=== PATIENT | male | born 1990 | race Caucasian/White ===

== ENCOUNTER 2024-01-29 15:06 | Emergency (ER) | payer MEDICAID, SELFPAY ==
[2024-01-29] VITALS (23 sets, daily range): BP systolic 124–175; BP diastolic 67–102; PULSE 79–124; RESP 26–30; TEMP 36.4–36.7; O2SAT 95–100
[2024-01-29] MEDS: LORazepam 2 MG/ML inj 0.5 MG IVP (15:40)
[2024-01-29 15:50] LABS: HCO3 VBG 20 mmol/L (21-28); PCO2 VBG 26 mmHG (40-50); PO2 VBG 67.2 mmHG (25-47); pH VBG 7.498 (7.32-7.43)
[2024-01-29] MEDS: 0.9 % SODIUM CHLORIDE 1000 ml 1,000 ML IV ×2 (15:55→17:10)
[2024-01-29 15:58] LABS: Basophils Absolute Auto 0.07 K/uL (0.00-0.30); Basophils Percent Auto 0.7 % (0.0-3.0); Eosinophils Absolute Auto 0.04 K/uL (0.00-0.50); Eosinophils Percent Auto 0.4 % (0.0-7.0); Hematocrit 43.8 % (37.0-53.0); Hemoglobin* 14.6 gm/dL (13.5-17.5); Immature Granulocytes Abs Auto 0.07 K/uL (0.00-0.30); Immature Granulocytes Pct Auto 0.7 %; Lymphocytes Percent Auto 10.9 % (20-44); Mean Corpuscular HGB Conc 33 gm/dL (32-36); Mean Corpuscular Hemoglobin 29 pg (26-34); Mean Corpuscular Volume 87 fL (80-100); Monocytes Percent Auto 8.8 % (0.0-11.0); Neutrophils Percent Auto 78.5 % (42.0-72.0); Platelet Count* 278 K/uL (140-440); RDW Coefficient of Variation % 12.9 % (11.5-15.5); Red Blood Count 5.01 m/uL (4.30-5.90); Slide Review Reflex No; White Blood Count* 10.49 K/uL (4.50-11.00)
[2024-01-29 16:08] LABS: Albumin* 5.2 g/dL (3.3-5.0)
[2024-01-29 16:09] LABS: Chloride* 102 mmol/L (96-114); Potassium* 4.1 mmol/L (3.6-5.1); Sodium* 134 mmol/L (135-149)
[2024-01-29 16:11] LABS: Alanine Aminotransferase* 25 U/L (4-50); Alkaline Phosphatase* 90 U/L (40-150); Anion Gap 13 mEq/L (7-15); Aspartate Amino Transferase* 53 U/L (12-35); Bilirubin Direct* 0.4 mg/dL (0.0-0.5); Blood Urea Nitrogen* 24 mg/dL (5-24); Carbon Dioxide* 19 mmol/L (20-32); Creatinine* 1.7 mg/dL (0.5-1.5); Estimated Glomerular Filt Rate 55 ml/min; Glucose* 106 mg/dL (60-115); Total Protein* 8.3 g/dL (6.0-8.3)
[2024-01-29 16:12] LABS: Calcium* 9.6 mg/dL (8.4-10.6); Magnesium* 1.8 mg/dL (1.5-2.6); Salicylate* < 1.0 mg/dL (1.0-10)
[2024-01-29 16:23] LABS: Troponin I* 0.02 ng/mL (0.01-0.04)
[2024-01-29 16:27] LABS: Acetaminophen* < 10.0 ug/mL (10.0-30.0); Ethanol* < 0.01 % (0.01-0.03)
[2024-01-29 18:01] LABS: PCR FLU A Negative PCR FLU A (Negative); PCR FLU B Negative PCR FLU B (Negative); SARS PCR* POSITIVE SARS-CoV-2 (Negative)
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
[2024-01-29 18:23] LABS: HCO3 VBG 23 mmol/L (21-28); PCO2 VBG 43 mmHG (40-50); PO2 VBG 33.5 mmHG (25-47)
[2024-01-29 18:37] LABS: Appearance Urine Clear (Clear); Bilirubin Urine 1+ (Negative); Blood Urine Trace-intact (Negative); Color Urine Dark yellow (Yellow); Glucose Urine Negative (Negative); Ketones Urine 1+ (Negative); Leukocyte Esterase Urine Negative (Negative); Nitrite Urine Negative (Negative); Protein Urine 2+ (Negative); Specific Gravity Urine >= 1.030 (1.000-1.030); Urobilinogen Urine 0.2 (0.2-1.0)
[2024-01-29 18:39] LABS: Chloride* 105 mmol/L (96-114); Potassium* 3.7 mmol/L (3.6-5.1); Sodium* 137 mmol/L (135-149)
[2024-01-29 18:42] LABS: Anion Gap 11 mEq/L (7-15); Blood Urea Nitrogen* 22 mg/dL (5-24); Carbon Dioxide* 21 mmol/L (20-32); Creatinine* 1.3 mg/dL (0.5-1.5); Estimated Glomerular Filt Rate 75 ml/min; Glucose* 97 mg/dL (60-115)
[2024-01-29 18:43] LABS: Calcium* 8.7 mg/dL (8.4-10.6)
--- NOTE | 2024-01-29 18:45 | ED.NURSE ---
Pt is awake in room, is cooperative at this time.
[2024-01-29 18:48] LABS: Lactate* 1.1 mmol/L (0.5-1.9)
[2024-01-29 18:53] LABS: Bacteria Urine Few
[2024-01-29 18:54] LABS: Hyaline Casts Urine Moderate (None-Few)
[2024-01-29 18:59] LABS: Cannabinoid Screen Urine POSITIVE (Negative)
[2024-01-29 19:00] LABS: Amphetamine Screen Urine POSITIVE (Negative); Barbiturate Screen Urine Negative (Negative); Benzodiazepines Screen Urine Negative (Negative); Cocaine Screen Urine Negative (Negative); Opiate Screen Urine Negative (Negative); Oxycodone Screen Urine Negative (Negative); Phencyclidine Screen Urine Negative (Negative); Tricyclic Antidepressant Urine Negative (Negative)
[2024-01-29 19:02] LABS: Methadone Screen Urine Negative (Negative); Methamphetamines Screen Urine POSITIVE (Negative)
--- NOTE | 2024-01-29 19:25 | CRLHL7_ITS ---
For Patients: As a result of the Cures Act, medical imaging exams and procedure reports are released immediately into your electronic medical record. You may view this report before your referring provider. If you have questions, please contact your health care provider. INDICATION: Short of breath, COVID-19. TECHNIQUE: Chest 1 view. COMPARISON: None. FINDINGS: Cardiovascular and mediastinum: Cardiomediastinal silhouette is within normal limits. Lungs and pleural spaces: Lungs are clear. No evidence of pleural effusion. No pneumothorax identified. Bones and soft tissues: Unremarkable. IMPRESSION: No acute cardiopulmonary process identified. No significant interval change. Dictated by Petar Fry MD @ 01/29/2024 8:51:37 PM (Electronically Signed)
== END 2024-01-29 20:34 | disposition home or self-care (01) ==
PROVIDERS: Emergency Provider Family Medicine
DX: U07.1 COVID-19 (principal); E86.0 Dehydration; F15.90 Other stimulant use, unspecified, uncomplicated
CPT/HCPCS: 36415; 71045; 80048; 80076; 80143; 80179; 80306; 81001; 82077; 82803; 83605; 83735; 84443; 84484; 85025; 87086; 87631; 93005; 94761; 96361; 96374; 99284; 99285; J2060; J7030

== ENCOUNTER 2025-01-04 16:30 | Outpatient (CLI) | payer MEDICAID, SELFPAY ==
--- OUTSIDE RECORDS SUMMARY | 2025-01-11 00:20 | XMS_ITS | Clinical Summary ---
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
--- OUTSIDE RECORDS SUMMARY | 2025-01-11 00:20 | XMS_ITS | Encounter Summary ---
Author Organization [facility] Address [address] [place] [address] Care Team Providers Care Sex Worker Or Escort Name Role Phone No Primary/Referring, Phy Primary [...] on filedocumented in this encounter Care Teams Sex Worker Or Escort Relationship Specialty Start Date End Date No Primary/Referring, Phy PCP - General 06/25/18 documented as of this encounter
--- OUTSIDE RECORDS SUMMARY | 2025-01-11 00:20 | XMS_ITS | Clinical Summary ---
Author Organization [facility] Address [address] [place] [address] Care Team Providers Care Molder Bench Name Role Phone Pcp, No Primary Care Provider Unavailabl e None Unavailable Unavailable Allergies Active Allergy Reactions Criticality Noted Date Comments Dronabinol Rash Low 09/17/2017 Mold Extracts Cough 11/20/2012 cough Quetiapine Other - Describe In Comment Field 08/29/2020 Nerve pain Nerve pain Medications diphenhydrAMINE (BENADRYL) 25 mg tabletIndication s:Anxiety Take 2 Tablets (50 mg) by mouth at bedtime. 30 Tablet 06/19/2024 9:15 AM TURNING MACHINE OPERATOR 4 Active haloperidoL (HALDOL) 20 mg tabletIndication s:Psychosis, unspecified psychosis type (HC) Take 1 Tablet (20 mg) by mouth at bedtime. 30 Tablet 06/19/2024 9:15 AM TURNING MACHINE OPERATOR 4 Active Additional Information Patient taking differently:20 [...] on file Legal Sex Male 5:26 AM TURNING MACHINE OPERATOR Gender Identity Not on file Sexual Orientation Not on file Obstetrics History Last Filed Vital Signs Vital Sign Reading Time Taken Comments Blood Pressure 124/68 09/18/2024 11:22 AM TURNING MACHINE OPERATOR Pulse 72 09/18/2024 11:22 AM TURNING MACHINE OPERATOR Temperature 36.3 C (97.4 F) 06/19/2024 6:11 AM TURNING MACHINE OPERATOR Respiratory Rate 16 06/19/2024 6:11 AM TURNING MACHINE OPERATOR Oxygen Saturation 97% 09/18/2024 11: 22 AM TURNING MACHINE OPERATOR Inhaled Oxygen Concentration - - Weight 88.8 kg (195 lb 12.8 oz) 025 11:22 AM TURNING MACHINE OPERATOR Height 179.1 cm (5' 10.5) 09/18/2024 1 1:22 AM TURNING MACHINE OPERATOR Body Mass Index 27.7 09/18/2024 11:22 AM TURNING MACHINE OPERATOR Plan of Treatment Health Maintenance Due Date [...] Non-Reactiv e, Invalid 01/03/2023 5:22 AM CDT [facility] Comment:A NONREACTIVE test r esult means that HIV-1 or HIV-2 antibodies and HIV-1 p24 antigen were not detected in the specimen. Blood BLOOD SPECIMEN / Unknown Venipuncture / Unknown 01/03/2023 4:15 AM CDT 01/03/2023 4:28 AM CDT Lela Sanchez MD SEND OUTS Final Result [facility] [address] [place] [address] * Patient Source ANTI HCV (01/03/2023 4:15 AM CDT) Pathologist [facility] HEPATITIS C ANTIBODY Non-React moses Non-React moses 01/03/2023 3:[address] [facility] Comment: Please note, per [...] Lela Sanchez MD SEND OUTS Final Result [facility] SENDOUT [place]NAL ZIP [id number] [address] [place] [address] from Last 3 Months or Most Recently Relevant to Health Maintenance Insurance [facility] Advance Directives * Full Code (Latest Code Status on File) Date Activated Date Inactivated Comments 06/09/2024 12:59 AM 06/19/2024 3:57 PM Question Answer Comments Code Status Discussion: Other * Full Code Date Activated Date Inactivated Comments 03/17/2018 9:30 PM 03/22/2018 9:25 PM Question Answer Comments Code Status Discussion: Not Discussed Care Teams Molder Bench Relationship Specialty Start Date End Date Pcp, No . PCP - General 06/08/24 None . 06/08/24
--- OUTSIDE RECORDS SUMMARY | 2025-01-11 00:20 | XMS_ITS | Clinical Summary ---
Author Organization [facility] Address [address] 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 Gender Identity Not on file Sexual Orientation Not on file Last Filed Vital Signs Vital Sign Reading Time Taken Comments Blood Pressure 105/54 09/12/2020 6:00 AM FIXTURE REPAIRER FABRICATOR Pulse 65 09/12/2020 6:00 AM FIXTURE REPAIRER FABRICATOR Temperature 36.6 C (97.8 F) 09/12/2020 6:00 AM FIXTURE REPAIRER FABRICATOR Respiratory Rate 18 09/12/2020 6:00 AM FIXTURE REPAIRER FABRICATOR Oxygen Saturation 98% 09/12/2020 6:00 AM FIXTURE REPAIRER FABRICATOR Inhaled Oxygen Concentration - - Weight 67.4 kg (148 lb 11.2 oz) 09/07/2020 8:00 AM FIXTURE REPAIRER FABRICATOR Height 182.9 cm (6' 0.01) 09/06/2020 5:00 PM CS T Body Mass Index 20.16 09/06/2020 5:00 PM FIXTURE REPAIRER FABRICATOR Plan of Treatment Not on file Advance Directives For more information, please contact: [phone] * Full Code (Latest Code Status on File) Date Activated Date Inactivated Comments 08/29/2020 10:43 AM 09/12/2020 6:18 PM All basic a nd advanced life-sustaining interventions are performed as appropriate Question Answer Comments Code status determined by: Other (please veronican t) Care Teams Program Management Manager Relationship Specialty Start Date End Date No Ref-Primary, Physician PCP - General 08/28/20
--- OUTSIDE RECORDS SUMMARY | 2025-01-11 00:21 | XMS_ITS | Clinical Summary ---
Author Organization [facility] Address [address] [place] [address] Care Team Providers Care Supervisor Photocomposition Name Role Phone No Primary/Referring, Phy Primary Care Provider Unavailable Source Comments You are receiving this document as you are listed as the primary care provider,follow-up provider, or the patient has been referred to you for consultation.This is in compliance with the Medicare and[facility] Cent[facility] EHR Incentive Program,which states Providers who transition their patient to another setting of careor provider of care or refers their patient to another provider of care shouldprovide summary care record for each transition of care or referral. [facility] Allergies No known active allergies Medications QUEtiapine [...] Comments Blood Pressure 164/132 06/16/2019 7:20 PM EXERCISE PHYSIOLOGY PROFESSOR Pulse 112 06/16/2019 7:20 PM EXERCISE PHYSIOLOGY PROFESSOR Temperature 37.1 C (98.8 F) 06/16/2019 6:31 PM EXERCISE PHYSIOLOGY PROFESSOR Respiratory Rate 21 06/16/2019 7:20 PM EXERCISE PHYSIOLOGY PROFESSOR Oxygen Saturation 97% 06/16/2019 7:20 PM EXERCISE PHYSIOLOGY PROFESSOR Inhaled Oxygen Concentration - - Weight - [...] age to complete this topic Care Teams Supervisor Photocomposition Relationship Specialty Start Date End Date No Primary/Referring, Phy PCP - General 06/25/18
== END 2025-01-04 16:31 | disposition home or self-care (01) ==
LOC: AMB 01-10 10:28
PROVIDERS: Visit Provider Family Medicine
DX: S09.90XA Unspecified injury of head, initial encounter (principal); V19.3XXA Pedal cyclist (driver) (passenger) injured in unspecified nontraffic accident, initial encounter; Y92.410 Unspecified street and highway as the place of occurrence of the external cause; Y93.89 Activity, other specified
CPT/HCPCS: A0425; A0429

== ENCOUNTER 2025-01-04 16:51 | Emergency (ER) | payer MEDICAID, SELFPAY ==
[2025-01-04] VITALS (8 sets, daily range): BP systolic 122; BP diastolic 86; PULSE 51–137; RESP 11–29; TEMP 36.3; O2SAT 96–100; BMI 18.9
--- OUTSIDE RECORDS SUMMARY | 2025-01-04 16:54 | XMS_ITS | Clinical Summary ---
Author Organization [facility] Address [address] [address] Phone Care Team Providers Care Pick Out Hand Name Role Phone Unavailable Primary Care Provider Unavailabl e Allergies Active Allergy Reactions Criticality Noted Date Comments Food Other Low 08/28/2020 Malesium Chemical P Vomiting Immunizations Immunization Administration Dates Next Due Tdap (7 years and older) 08/28/2020 Social History Tobacco Use Types Packs/Day Years Used Date Smoking Tobacco: Never Assessed Sex and Gender Information Value Date Recorded Sex Assigned at Not on file Legal Sex Male 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
--- OUTSIDE RECORDS SUMMARY | 2025-01-04 16:54 | XMS_ITS | Clinical Summary ---
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 [facility] Allergies No known active allergies Medications QUEtiapine Fumarate (SEROQUEL XR OR) Active Social History Tobacco Use Types Packs/Day Years Used Date Smoking Tobacco: Every Day Alcohol Use Standard Drinks/Week Comments Not Currently 0 (1 standard drink = 0.6 oz pur e alcohol) Denies Sex and Gender Information Value Date Recorded Sex Assigned at Not on file Legal Sex Male 5:38 AM CDT Gender Identity Not on file Sexual Orientation Not on file Last Filed Vital Signs Vital Sign Reading Time Taken Comments Blood Pressure 164/132 06/16/2019 7:20 PM MESSAGING ARCHITECT Pulse 112 06/16/2019 7:20 PM MESSAGING ARCHITECT Temperature 37.1 C (98.8 F) 06/16/2019 6:31 PM MESSAGING ARCHITECT Respiratory Rate 21 06/16/2019 7:20 PM MESSAGING ARCHITECT Oxygen Saturation 97% 06/16/2019 7:20 PM MESSAGING ARCHITECT Inhaled Oxygen Concentration - - Weight - - Height - - Body Mass Index - - Plan of Treatment Health Maintenance Due Date Last Done Comments Hep C Screening (Preventive Services) 1992 HIV Screening (Preventive Services) 2008 Adult Preventive Visit 2010 HepB Vaccine (1) 09/16/2011 COVID-19 Vaccine (2 - 2023-2 5 season) 2024 08/27/2020 Influenza Vaccine (Season Ended) 2025 DTaP/Tdap/Td Vaccine (3 - Tdap) 08/28/2030 08/28/2020, 05/27/2010 Zoster/Shingles Vaccine (1 o f 2) 2042 HepA Vaccine Aged Out 06/16/2020 No longer eligi ble based on patient's age to complete this topic HPV Vaccine Aged Out No longer eligi ble based on patient's age to complete this topic Hib Vaccine Aged Out No longer eligi ble based on patient's age to complete this topic IPV (Polio) Vaccine Aged Out No longe r eligible based on patient's age to complete this topic MCV4 Vaccine Aged Out No longer eligi ble based on patient's age to complete this topic Meningococcal B Vaccine Aged Out No l onger eligible based on patient's age to complete this topic Pneumococcal Vaccine Aged Out No long er eligible based on patient's age to complete this topic Care Teams Metal Bending Machine Operator Relationship Specialty Start Date End Date No Primary/Referring, Phy PCP - General 06/25/18
--- OUTSIDE RECORDS SUMMARY | 2025-01-04 16:54 | XMS_ITS | Clinical Summary ---
Author Organization [facility] Address [address] [place] [id number] Care Team Providers Care Final Inspector Name Role Phone Pcp, No Primary Care Provider Unavailabl e None Unavailable Unavailable Allergies Active Allergy Reactions Criticality Noted Date Comments Dronabinol Rash Low 09/17/2017 Mold Extracts Cough 11/20/2012 cough Quetiapine Other - Describe In Comment Field 08/29/2020 Nerve pain Nerve pain Medications diphenhydrAMINE (BENADRYL) 25 mg tabletIndication s:Anxiety Take 2 Tablets (50 mg) by mouth at bedtime. 30 Tablet 06/19/2024 9:15 AM MEDICAL OFFICE TECHNOLOGY INSTRUCTOR 4 Active haloperidoL (HALDOL) 20 mg tabletIndication s:Psychosis, unspecified psychosis type (HC) Take 1 Tablet (20 mg) by mouth at bedtime. 30 Tablet 06/19/2024 9:15 AM MEDICAL OFFICE TECHNOLOGY INSTRUCTOR 4 Active Additional Information Patient taking differently:20 mg Oral BEDTIME, injection, Reported on 09/18/2024 melatonin 3 mg tablet 5 Active Active Problems Problem Noted Date Diagnosed Date Schizoaffective disorder, bipolar type 5 Psychosis 06/19/2024 Bipolar affective disorder 06/09/2024 Acute encephalopathy 03/20/2018 Methamphetamine abuse 03/20/2018 Non-traumatic rhabdomyolysis 03/20/2018 Acute renal failure (ARF) 03/20/2018 Tobacco use disorder 08/02/2011 Chemical dependency 05/27/2010 Overview (05/27/2010): Alcohol treatment 05/2010 Bipolar 1 disorder Immunizations Immunization Administration Dates Next Due COVID-19 vaccine (Moderna 100mcg/0.5mL) PF, MDV 04/24/2021,08/27/2020 DTaP 04/25/1997, 4,02/15/1993,1992,1992 HIB HbOC (HibTITER) 12/16/1993, 3,01/16/1993,1992 Hepatitis A, Unspecified 06/16/2020 Hepatitis B (Peds) 06/25/1993,1992, 993 Inactivated Polio Vaccine 04/25/1997,07/1992,01/16/1993,1992 MMR 04/25/1997,12/16/1993 Tdap 08/28/2020,05/27/2010 Tuberculin (PPD) 05/27/2010 Tuberculin Skin Test, Unspecified 05/27/2010 Social History Tobacco Use Types Packs/Day Years Used Date Smoking Tobacco: Every Day Cigarettes Smokeless Tobacco: Never Tobacco Cessation:Ready to Q uit: Not Asked; Counseling Given: Not Answered Comments:note 03/21/18 Alcohol Use Standard Drinks/Week Comments Never 0 (1 standard drink = 0.6 oz pur e alcohol) reports social use PHQ-2 Answer Date Recorded PHQ-2 TOTAL SCORE 0 06/19/2024 Social Connections Answer Date Recorded Do you often feel lonely or isolated from those around you? 0 06/08/2024 Alcohol Use Answer Date Recorded How often do you have a drink containing alcohol ? 0 06/09/2024 How many drinks containing a lcohol do you have on a typical day when you are drinking? 0 06/09/2024 How often do you have five or more drinks on one occasion? 0 06/09/2024 Financial Resource Strain Answer Date R ecorded Difficulty of Paying Living Expenses 3 06/20/2024 Difficulty of Paying Living Expenses Not on file 06/20/2024 Food Insecurity Answer Date Recorded Do you worry your food will run out before you are able to buy more? 1 06/08/2024 Transportation Needs Answer Date Record ed Does lack of transportation keep you from medica l appointments? 1 06/08/2024 Does lack of transportation keep you from work, meetings or getting things that you need? 1 06/08/2024 Housing Stability Answer Date Recorded What is your housing situation today? 3 06/08/2024 Interpersonal Safety Answer Date Record ed Are you being hit, kicked, p ushed or yelled at (see row info)? No 06/08/2024 Interpersonal Safety Abuse 12 - 18 Not on file 06/08/2024 Interpersonal Safety Ambulatory Vulnerability No t on file 06/08/2024 Utilities Answer Date Recorded Do you have trouble paying f or utilities (for example, heat, electricity, water, phone)? 1 06/08/2024 Sex and Gender Information Value Date Recorded Sex Assigned at Not on file Legal Sex Male 5:26 AM MEDICAL OFFICE TECHNOLOGY INSTRUCTOR Gender Identity Not on file Sexual Orientation Not on file Obstetrics History Last Filed Vital Signs Vital Sign Reading Time Taken Comments Blood Pressure 124/68 09/18/2024 11:22 AM MEDICAL OFFICE TECHNOLOGY INSTRUCTOR Pulse 72 09/18/2024 11:22 AM MEDICAL OFFICE TECHNOLOGY INSTRUCTOR Temperature 36.3 C (97.4 F) 06/19/2024 6:11 AM MEDICAL OFFICE TECHNOLOGY INSTRUCTOR Respiratory Rate 16 06/19/2024 6:11 AM MEDICAL OFFICE TECHNOLOGY INSTRUCTOR Oxygen Saturation 97% 09/18/2024 11: 22 AM MEDICAL OFFICE TECHNOLOGY INSTRUCTOR Inhaled Oxygen Concentration - - Weight 88.8 kg (195 lb 12.8 oz) 025 11:22 AM MEDICAL OFFICE TECHNOLOGY INSTRUCTOR Height 179.1 cm (5' 10.5) 09/18/2024 1 1:22 AM MEDICAL OFFICE TECHNOLOGY INSTRUCTOR Body Mass Index 27.7 09/18/2024 11:22 AM MEDICAL OFFICE TECHNOLOGY INSTRUCTOR Plan of Treatment Health Maintenance Due Date Last Done Comments Pneumococcal series for age 6-49 (1 of 2 - PCV) 09/16/2011 COVID-19 vaccine series (3 - season) 2024 04/24/2021, 08/27/2020 Influenza Vaccine (Season Ended) 2025 Depression screening for age 12+ 06/19/2025 06/19/20 24, 06/08/2024 BMI (ht and wt on same day) for age 18+ 09/18/2025 09/18/2024 Tetanus booster 08/28/2030 08/28/2020, 05/27/2010 Hepatitis B series for 19+ Completed 06/25, 1992, 1992 Tdap Completed 08/28/2020, 05/27/2010 HIV for age 15-65 Completed 01/03/2023, 03/17/2018 Hepatitis C screening for age 18-79 Completed 01/03 Procedures Procedure Name Priority Date/Time Associated Diagnosis Comments EXPOSURE (BBF) RAPID HIV STAT 01/03/2023 4:15 AM CDT EXPOSURE (BBF) ANTI HCV STAT 01/03/2023 4:15 AM CDT from Last 3 Months or Most Recently Relevant to Health Maintenance Results * Patient Source Rapid HIV - Unknown HIV (01/03/2023 4:15 AM CDT) SOURCE RAPID HIV SCREEN Non-React moses Non-Reactiv e, Invalid 01/03/2023 5:22 AM CDT [facility] Comment:A NONREACTIVE test r esult means that HIV-1 or HIV-2 antibodies and HIV-1 p24 antigen were not detected in the specimen. Blood BLOOD SPECIMEN / Unknown Venipuncture / Unknown 01/03/2023 4:15 AM CDT 01/03/2023 4:28 AM CDT Lela Sanchez MD SEND OUTS Final Result [facility] [address] [place] [address] * Patient Source ANTI HCV (01/03/2023 4:15 AM CDT) Pathologist [facility] HEPATITIS C ANTIBODY Non-React moses Non-React moses 01/03/2023 3:03 PM CDT [facility] Comment: Please note, per www.CDC.gov: If a patient is known to be at high risk of HCV infection, or is symptomatic, and the physician's suspicion of HCV infection is high, HCV RNA testing is often employed and is of diagnostic value, even after an initial negative anti-HCV test result. Biotin supplements may cause clinically significant interference for this test assay. If interference is suspected, it is strongly recommended that biotin is discontinued for at least one week prior to retesting. Blood BLOOD SPECIMEN / Unknown Venipuncture / Unknown 01/03/2023 4:15 AM CDT 01/03/2023 4:30 AM CDT Lela Sanchez MD SEND OUTS Final Result [facility] SENDOUT [place] [id number] [address] [place] [address] from Last 3 Months or Most Recently Relevant to Health Maintenance Insurance [employer] Advance Directives * Full Code (Latest Code Status on File) Date Activated Date Inactivated Comments 06/09/2024 12:59 AM 06/19/2024 3:57 PM Question Answer Comments Code Status Discussion: Other * Full Code Date Activated Date Inactivated Comments 03/17/2018 9:30 PM 03/22/2018 9:25 PM Question Answer Comments Code Status Discussion: Not Discussed Care Teams Final Inspector Relationship Specialty Start Date End Date Pcp, No . PCP - General 06/08/24 None . 06/08/24
--- OUTSIDE RECORDS SUMMARY | 2025-01-04 16:54 | XMS_ITS | Clinical Summary ---
Author Organization [facility] Address [address] [place] [address] Care Team Providers Care Edger Saw Operator Name Role Phone No Ref-Primary, Physician Primary Care Provider Allergies Active Allergy Reactions Criticality Noted Date Comments Food Other (See Comments) Low 08/28/2020 Malesium Chemical P Vomiting Molds & Smuts Cough 11/20/2012 cough Quetiapine Other (See Comments) 08/29/2020 Nerve pain Medications divalproex sodium extended-releas e (DEPAKOTE ER) 500 MG 24 hr tabletIndicatio ns:Bipolar 1 disorder (H) Take 3 tablets (1,500 mg) by mouth At Bedtime 90 tablet 1 Active nicotine polacrilex (NICORETTE) 4 MG gumIndications: Bipolar 1 disorder (H) Place 1 each (4 mg) inside cheek every hour as needed for other (nicotine withdrawal symptoms) 100 each 1 Active Vitamin D3 (CHOLECALCIFERO L) 25 mcg (1000 units) tabletIndicatio ns:Bipolar 1 disorder (H) Take 2 tablets (50 mcg) by mouth daily 30 tablet 1 Active Active Problems Problem Noted Date Diagnosed Date Suicidal behavior 08/29/2020 Acute encephalopathy 03/20/2018 Acute renal failure (ARF) 03/20/2018 Methamphetamine abuse 03/20/2018 Non-traumatic rhabdomyolysis 03/20/2018 Tobacco use disorder 08/02/2011 Chemical dependency 05/27/2010 Overview (08/29/2020): Alcohol treatment 05/2010 Social History Tobacco Use Types Packs/Day Years Used Date Smoking Tobacco: Never Assessed Adolescent Education Answer Date Record ed Getting School Help Needed Not on file 04/09 Sex and Gender Information Value Date Recorded Sex Assigned at Not on file Legal Sex Male 9:07 PM YARN SPINNER Gender Identity Not on file Sexual Orientation Not on file Last Filed Vital Signs Vital Sign Reading Time Taken Comments Blood Pressure 105/54 09/12/2020 6:00 AM YARN SPINNER Pulse 65 09/12/2020 6:00 AM YARN SPINNER Temperature 36.6 C (97.8 F) 09/12/2020 6:00 AM YARN SPINNER Respiratory Rate 18 09/12/2020 6:00 AM YARN SPINNER Oxygen Saturation 98% 09/12/2020 6:00 AM YARN SPINNER Inhaled Oxygen Concentration - - Weight 67.4 kg (148 lb 11.2 oz) 09/07/2020 8:00 AM YARN SPINNER Height 182.9 cm (6' 0.01) 09/06/2020 5:00 PM CS T Body Mass Index 20.16 09/06/2020 5:00 PM YARN SPINNER Plan of Treatment Not on file Advance Directives For more information, please contact: [phone] * Full Code (Latest Code Status on File) Date Activated Date Inactivated Comments 08/29/2020 10:43 AM 09/12/2020 6:18 PM All basic a nd advanced life-sustaining interventions are performed as appropriate Question Answer Comments Code status determined by: Other (please veronican t) Care Teams Edger Saw Operator Relationship Specialty Start Date End Date No Ref-Primary, Physician PCP - General 08/28/20
--- OUTSIDE RECORDS SUMMARY | 2025-01-04 16:54 | XMS_ITS | Encounter Summary ---
Author Organization [facility] Address [address] [place] [address] Care Team Providers Care Pickle Cutter Name Role Phone No Primary/Referring, Phy Primary Care Provider Unavailable Encounter Details Date Type Department Care Team (Late st Contact Info) Description 06/26/2018 [facility] Social History Tobacco Use Types Packs/Day Years Used Date Smoking Tobacco: Every Day Alcohol Use Standard Drinks/Week Comments Not Currently 0 (1 standard drink = 0.6 oz pur e alcohol) Denies Sex and Gender Information Value Date Recorded Sex Assigned at Not on file Legal Sex Male 5:38 AM CDT Gender Identity Not on file Sexual Orientation Not on file documented as of this encounter Plan of Treatment Not on file documented as of this encounter Visit Diagnoses Not on filedocumented in this encounter Care Teams Pickle Cutter Relationship Specialty Start Date End Date No Primary/Referring, Phy PCP - General 06/25/18 documented as of this encounter
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
[2025-01-04] MEDS: OLANZapine 5 MG/ML inj 10 MG IM (17:45)
[2025-01-04 18:14] LABS: HCO3 VBG 26 mmol/L (21-28); PCO2 VBG 49 mmHG (40-50); PO2 VBG 33.6 mmHG (25-47); pH VBG 7.333 (7.32-7.43)
[2025-01-04 18:16] LABS: Basophils Percent Auto 0.6 % (0.0-3.0); Eosinophils Percent Auto 1.4 % (0.0-7.0); Hematocrit 44.7 % (37.0-53.0); Hemoglobin* 14.2 gm/dL (13.5-17.5); Immature Granulocytes Pct Auto 0.2 %; Lymphocytes Percent Auto 11.1 % (20-44); Mean Corpuscular HGB Conc 32 gm/dL (32-36); Mean Corpuscular Hemoglobin 29 pg (26-34); Mean Corpuscular Volume 91 fL (80-100); Monocytes Percent Auto 6.2 % (0.0-11.0); Neutrophils Percent Auto 80.5 % (42.0-72.0); Platelet Count* 351 K/uL (140-440); RDW Coefficient of Variation % 13.5 % (11.5-15.5); Red Blood Count 4.93 m/uL (4.30-5.90); White Blood Count* 12.43 K/uL (4.50-11.00)
[2025-01-04 18:19] LABS: Lactate* 4.7 mmol/L (0.5-1.9); Slide Review Reflex No
[2025-01-04 18:37] LABS: Chloride* 104 mmol/L (96-114); Sodium* 143 mmol/L (135-149)
[2025-01-04 18:38] LABS: Potassium* 3.9 mmol/L (3.6-5.1)
[2025-01-04 18:40] LABS: Alanine Aminotransferase* 25 U/L (4-50); Anion Gap 15 mEq/L (7-15); Aspartate Amino Transferase* 34 U/L (12-35); Blood Urea Nitrogen* 19 mg/dL (5-24); Calcium* 10.5 mg/dL (8.4-10.6); Carbon Dioxide* 24 mmol/L (20-32); Est. Creatinine Clearance* 89.81; Estimated Glomerular Filt Rate 103 ml/min; Glucose* 132 mg/dL (60-115); Total Protein* 8.1 g/dL (6.0-8.3)
[2025-01-04 18:41] LABS: Acetaminophen* < 10.0 ug/mL (10.0-30.0); Alkaline Phosphatase* 73 U/L (40-150); Bilirubin Total* 0.7 mg/dL (0.1-1.5); Ethanol* < 0.01 % (0.01-0.03); Salicylate* < 1.0 mg/dL (1.0-10)
== END 2025-01-04 20:15 ==
PROVIDERS: Emergency Provider Family Medicine
DX: S09.90XA Unspecified injury of head, initial encounter (principal); F15.90 Other stimulant use, unspecified, uncomplicated; F12.90 Cannabis use, unspecified, uncomplicated; V18.0XXA Pedal cycle driver injured in noncollision transport accident in nontraffic accident, initial encounter
CPT/HCPCS: 36415; 70450; 71045; 72125; 80053; 80143; 80179; 80306; 82077; 82803; 83605; 85025; 93005; 94761; 96372; 99284; 99285; Q3014

== ENCOUNTER 2025-03-28 03:50 | Outpatient (CLI) | payer MEDICAID, SELFPAY | END 2025-03-28 03:51 | disposition home or self-care (01) | LOC: AMB 03-29 11:24 | PROVIDERS: Visit Provider Family Medicine | DX: F29 Unspecified psychosis not due to a substance or known physiological condition (principal) | CPT/HCPCS: A0998 ==